=== PATIENT | male | born 1960 | race Caucasian/White ===

== ENCOUNTER 2022-06-07 20:40 | Emergency (ER) | payer OTHER ==
[~2022-06-07] VITALS: Ht 182.9 cm; Wt 81.8 kg
[2022-06-07 20:51] VITALS: BP 140/80
[2022-06-07] MEDS ORDERED: NA P133E8 PR (21:20)
[2022-06-07] MEDS ORDERED: POLY17PO PO (21:20)
== END 2022-06-07 22:42 | disposition home or self-care (01) ==
LOC: EMS 20:43
DX: K59.00 Constipation, unspecified (principal)
CPT/HCPCS: 99283; Z7502